=== PATIENT | female | born 1995 | race Caucasian/White ===

== ENCOUNTER 2025-04-04 02:25 | Inpatient (IN) | payer OTHER, SELFPAY ==
[2025-04-04] VITALS (32 sets, daily range): BP systolic 106–155; BP diastolic 56–87; PULSE 48–101; RESP 16; O2SAT 98–100
[2025-04-04] MEDS: OXYTOCIN 10 UNIT/ML INJ IM (01:40)
[2025-04-04 02:09] LABS: Basophils Percent Auto 0.1 % (0.0-3.0); Eosinophils Percent Auto 0.2 % (0.0-7.0); Hematocrit 39.4 % (33.0-51.0); Hemoglobin* 13.4 gm/dL (12.0-16.0); Immature Granulocytes Pct Auto 1.1 %; Lymphocytes Percent Auto 9.4 % (20-44); Mean Corpuscular HGB Conc 34 gm/dL (32-36); Mean Corpuscular Hemoglobin 32 pg (26-34); Mean Corpuscular Volume 94 fL (80-100); Monocytes Percent Auto 3.1 % (0.0-11.0); Neutrophils Percent Auto 86.1 % (42.0-72.0); Platelet Count* 240 K/uL (140-440); RDW Coefficient of Variation % 13.1 % (11.5-15.5); Red Blood Count 4.18 m/uL (4.00-5.20)
[2025-04-04 02:13] LABS: Slide Review Reflex No
--- NOTE | 2025-04-04 02:15 | ED_ITS ---
ED Chart Note Chart Note Details Date: 04/04/25 Details: I was called from the ER to emergently attend this patient. Sign out to me by nurses is that she is precipitous pre term delivery. She is reportedly 34 weeks. I do know her blood type is A positive, no RhoGAM. She has not had gr oup B strep screening done yet. She started having contractions at home, nursing staff noted that they can feel the head right down in the vagina. She has been leaking fluid, obviously ruptured. She tells me that she is not febrile, has not felt ill. Fluid leakage just happened with the contractions. She has had 1 other , did deliver pre term. Patient was initially standing in the room, leaning on the bed. We did assist patient between contractions to get into the bed. Nursing staff was having a difficult time finding heart tones through the abdomen. Scalp clip was put on. Within 5 minutes of my being there, patient delivered a live female infant at 1:23 p.m.. Given that this was a delivery, cord was clamped. Baby did cry right away, mouth the nose was suctioned of some amniotic fluid. She was taken to the warmer an nursing staff was attending to her. At 1 minute and 5 minutes Apgars were 9 and 9 upon my review of the . She did get pulse oximetry and heart rate probe placed on. She was appropriately dried. Within 10 minutes of delivery she was developing a little abdominal movement with breathing, nurses were attending to her appropriately. They did do some positive-pressure. Dr. Gonzalez did come, care turned over to her. Patient's placenta had not detached and was not delivered when I left. Patient was not at 30 minutes from delivery. Concern for retained placenta here given that she delivered pre term. Dr. Gonzalez is aware.
--- OUTSIDE RECORDS SUMMARY | 2025-04-04 02:27 | XMS_ITS | Clinical Summary ---
Author Organization [facility] Address [address] [place] [id number] Care Team Providers Care Chief Internal Auditor Name Role Phone MarinaGloria casas MD Primary Care Provider Allergies No known active allergies Medications Ztnsvcfq-Wc-Hrl- Fe-FA ( VITAMIN) tab tablet Take 1 tablet by mouth once daily. 0 7 Active Breast Pump PurchaseIndicati ons:Care and examination of lactating mother (HC) Electric breast pump for home use. Gestational age at delivery: 40 weeks. Reason for need: return to work. Length of need: 99 months (lifetime use) 1 Each 5 Active Active Problems Problem Noted Date Diagnosed Date Cervical cancer screening 11/10/2024 Overview (11/10/2024): 10/2024 NIL/HPV negative Plan: Pap and HPV due 10/2029 [facility], Supervision of high-risk 10/29/19 25 Overview (11/24/2024): Rosanna WILSON : 1995 REFERRING PROVIDER/CLINIC LOCATION/FAX #: Darvin Samuels Tapper, Kristin Noelle, MD Primary provider approves scheduling of recommended ultrasounds/testing: Yes [facility] ULTRASOUND/TESTING PATIENT Its A Girl! [facility] CONSULT ON 11/24/24 Support person name: Johnnie ULTRASOUND TYPE: REASON FOR VISIT: Consult for Hx PTD NEXT VISIT ALERTS: Final LINDA by LMP LMP Date: Patient's last menstrual period was 08/11/2024 (exact date). LINDA: 05/18/25 Early US: Date: 10/05/24 GA: 7w3d LINDA: 05/21/25 PrePregnancy Weight: 194lb Height: 5'6 BMI: 30 PLANS & FUTURE APPOINTMENTS: ULTRASOUND/GROWTH PLAN: - Growth: Next TESTING PLAN: - Testing: Through DELIVERY PLAN: - Scheduled delivery: - Preferred delivery location: [place] PRIMARY DIAGNOSIS: 29 y.o. Estimated Date of Delivery: 05/18/25 MATERNAL Anxiety, depression 2017 34w3d PTD BMI 30 PREVIOUS ULTRASOUNDS: ECHO: SPECIALISTS/CONSULTS: Include: Specialty MD Clinic Name Phone# [place] and ADDED TO PATIENT CARE TEAM GENETICS: NIPS: Low Risk CARE COORDINATION: PERTINENT LABS: Labs reviewed? Yes Normal? Yes Blood type: A Rh Positive Antibody screen: Negative PERTINENT MEDS: PROCEDURES: PLAN OF CARE: Anxiety and depression 05/20/2018 Migraine without aura and wi thout status migrainosus, not intractable 05/20/2018 labor in third trimester with de livery 10/05/2017 Supervision of normal first , antepartu m 03/25/2017 Rubella non-immune status, antepartum 03/25/2017 Hyperopic astigmatism of both eyes 01/16/2017 AUDELIA (generalized anxiety disorder) 12/16/2013 Assessment & Plan (01/16/2017 5:05 PM CDT): Mental Health concern: anxiety well controlled. No current medication. No therapy currently. PHQ Depression Screening 01/09/2016 01/16/2017 Date of PHQ exam (doc flow) 01/09/2016 01/16/2017 1. Lack of interest/pleasure 0 - Not at all 0 - Not at all 2. 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 No intermenstrual bleeding, spotting, or discharge. Dysmenorrhea : cramping severe first several day to entire menses. Last two cycles had cramping for 2 weeks following her menses. Resolved with changes in diet. Associated with changes in bowel. Cyclic symptoms include bloating, diarrhea and constipation. Current contraception: condoms History of abnormal Pap smear: No History of abnormal mammogram: n/a Family history of breast cancer: Yes Family history of uterine or ovarian cancer: No Regular self breast exam: yes Regular self skin checks: yes Changing moles/lesions? No Diet:regular Calcium Intake: Adequate dietary intake Exercise: moderate regular exercise program Dentist twice per year: yes Vision exam in last two years: yes STD concerns: No Age first intercourse: 14 New Partner in last 90 days? No Abuse: Current or Past(Physical, Sexual or Emotional)- No Do you feel safe in your environment - yes Safe in relationships? yes Screen for STD (sexually transmitted disease) 01/17/20 17 03/25/2017 Encounters Date Type Department Care Team Description 03/24/2025 4:05 PM CDT OB Encounter [facility] [address] [place] [address] Gloria Gray MD Care (32w 1d) 03/24/2025 Travel 03/11/2025 2:25 PM CDT OB Encounter [facility] [address] [facility] [place] [address] Gloria Gray MD Care (30w 2d/) 03/11/2025 Travel 02/24/2025 2:50 PM CDT OB Encounter [facility] [address] [place] [address] Gloria Gray MD Care (28w 1d/Had a fall on Mother's day due to cat tripping her but didn't land belly down just on knees and arms. wanted her to mention it.) 02/24/2025 Travel 01/29/2025 10:30 AM CDT Ancillary Procedure [facility] [address] [place] [address] 01/29/2025 9:15 AM CDT OB Encounter [facility] [address] [place] [address] Gloria Gray MD Care (24w 3d) 01/29/2025 Travel from Last 3 Months Immunizations Immunization Administration Dates Next Due DTaP 03/11/1998 Human Papilloma Virus Vaccine 08/19/2009, 009,02/01/2009 08/16/2009 Influenza, IIV4 08/07/2017 MMR 10/06/2017 Td (Age >=7 Years) 05/25/2005 Td, Preservative Free (age >= 7 Years) 5 Tdap 02/24/2025,09/11/2017,01/09/2016 Family History * Patient is adopted Medical History Relation Name Comments Amblyopia Daughter Chevra Alcoholism Father Heart attack Father Unknown Father adopted by her stepfather. has adopted step and half sibling Chromosomal disorder Half-Brother Wilfredo Morel-Darlene agenis syndrome Anxiety disorder Maternal Grandfather Coronary artery disease Maternal Grandfather Heart Disease Maternal Grandfather Throat cancer Maternal Grandfather Arthritis Maternal Grandmother Cancer-breast Maternal Grandmother Osteoarthritis Mother Cancer-breast Other maternal side Heart attack Paternal Grandfather Relation Name Status Comments Daughter Marlon Alive Father Half-Brother Wilfredo Alive Maternal Grandfather Alive Maternal Grandmother Alive Mother Alive Other Paternal Grandfather Social History Tobacco Use Types Packs/Day Years Used Date Smoking Tobacco: Never Smokeless Tobacco: Never Tobacco Cessation:Counseling Given: Yes Comments:Hx of exposure as a child Alcohol Use Standard Drinks/Week Comments Not Currently 0 (1 standard drink = 0.6 oz pur e alcohol) OCCASIONAL BEER PHQ-2 Answer Date Recorded PHQ-2 TOTAL SCORE 0 04/06/2021 Social Connections Answer Date Recorded Do you often feel lonely or isolated from those around you? 0 01/01/2025 Financial Resource Strain Answer Date R ecorded Difficulty of Paying Living Expenses 3 01/01/2025 Difficulty of Paying Living Expenses Not on file 01/01/2025 Food Insecurity Answer Date Recorded Do you worry your food will run out before you are able to buy more? 1 01/01/2025 Transportation Needs Answer Date Record ed Does lack of transportation keep you from medica l appointments? 1 01/01/2025 Does lack of transportation keep you from work, meetings or getting things that you need? 1 01/01/2025 Housing Stability Answer Date Recorded What is your housing situation today? 1 01/01/2025 Interpersonal Safety Answer Date Record ed Are you being hit, kicked, p ushed or yelled at (see row info)? No 11/24/2024 Interpersonal Safety Abuse 12 - 18 Not on file 11/24/2024 Interpersonal Safety Ambulatory Vulnerability No t on file 11/24/2024 Utilities Answer Date Recorded Do you have trouble paying f or utilities (for example, heat, electricity, water, phone)? 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 Not on file Not on file Obstetrics History Para Term AB IAB SAB Ectopic Multiple Livin g Live Births 2 1 0 1 0 0 0 0 0 1 1 Date Outcome GA Total Labor Labor/2nd/3rd Weight Sex Type Anes PTL James A1 A5 Name Clin 2016 34w 3d 2.02 kg (4 lb 7.3 oz) F Vag Epidur al Y Livin g 9 9 Ziegle r, Liudmilaa Divya Delivery Location:[facility] Current Summary Episode Dates Number of Fetuses Estimated Date of Delivery 09/22/2024 - Present (04/04/2025) 05/18/2025 (set by Silvana Castañeda RN on 09/22/2024 based on Last Menstrual Period on 08/11/2024 (Exact Date)) Dating Summary Based On LINDA GA Diff Last Menstrual Period on 08/11/2024 (Exact Date) 05/18/2025 Working Vitals Pregravid Weight Height TWG (As of 04/04/2025) Pregrav id BMI 1.69 m (5' 6.54) Date GA Fund Present FHR Mvmt BP Weight Edema Alb Glu Ket Dil/ Eff/Sta 5 15w0d Inpatient data not displayed here. See encounter summary. Notes Progress Notes - OB Encounte r - 03/24/2025 - GA:32w1d 03/24/2025 - 32w1d - Gloria Gray MD SUBJECTIVE: Rosanna WILSON is a 29 y.o. female at 32+1 weeks. No concerns. See visit comments. OBJECTIVE: see OB vitals flow sheet ASSESSMENT : 32+1 weeks gestation with no complications PLAN: labor signs and symptoms reviewed with patient including pain, cramping, bleeding or leaking fluid. RTC 2 weeks. Gloria Gray MD .................... 03/24/2025 4:23 PM Progress Notes - OB Encounte r - 03/11/2025 - GA:30w2d 03/11/2025 - 30w2d - Gloria Gray MD SUBJECTIVE: Rosanna WILSON is a 29 y.o. female at 30+2 weeks. No concerns. Weight is down. However she reports eating and drinking well. See visit comments. OBJECTIVE: see OB vitals flow sheet ASSESSMENT : 30+2 weeks gestation with no complications PLAN: labor signs and symptoms reviewed with patient including pain, cramping, bleeding or leaking fluid. RTC 2 weeks. Gloria Gray MD .................... 03/11/2025 2:40 PM Progress Notes - OB Encounte r - 02/24/2025 - GA:28w1d 02/24/2025 - 1d - Gloria Gray MD SUBJECTIVE: Rosanna WILSON is a 29 y.o. female at 28+1 weeks. No concerns. See visit comments. OBJECTIVE: see OB vitals flow sheet ASSESSMENT : 28+1 weeks gestation with no complications PLAN: labor signs and symptoms reviewed with patient including pain, cramping, bleeding or leaking fluid. Diabetes, hemoglobin and syphilis screening today. TDaP today. RTC 2 weeks. Gloria Gray MD .................... 02/24/2025 3:01 PM Progress Notes - OB Encounte r - 01/29/2025 - GA:24w3d 01/29/2025 - 24w3d - Gloria Gray MD SUBJECTIVE: Rosanna WILSON is a 29 y.o. female at 24+3 weeks. No concerns. See visit comments. OBJECTIVE: see OB vitals flow sheet ASSESSMENT : 24+3 weeks gestation with no complications Hx . Cervical length 4.5 cm at her 20 week ultrasound. PLAN: labor signs and symptoms reviewed with patient including pain, cramping, bleeding or leaking fluid. RTC 4 weeks, will do diabetes, hemoglobin and syphilis screening and TDaP next visit.. Gloria Gray MD .................... 01/29/2025 9:28 AM Progress Notes - OB Encounte r - 01/01/2025 - GA:20w3d 01/01/2025 - w3d - Gloria Gray MD SUBJECTIVE: Rosanna WILSON is a 29 y.o. female at 20+3 weeks. No concerns. See visit comments. OBJECTIVE: see OB vitals flow sheet ASSESSMENT : 20+3 weeks gestation with no complications History of , cervical length with ultrasound today. PLAN: labor signs and symptoms reviewed with patient including pain, cramping, bleeding or leaking fluid. RTC 4 weeks. Gloria Gray MD .................... 01/01/2025 11:53 AM Progress Notes - OB Encounte r - 11/26/2024 - GA:15w2d 11/26/2024 - 15w2d - Gloria Gray MD SUBJECTIVE: Rosanna WILSON is a 29 y.o. female at 15+2 weeks. No concerns. See visit comments. Patient is down 10# since our last visit, she reports cutting out soda and not having cravings for sugar. She is eating well and staying hydrated. Denies nausea/vomiting. OBJECTIVE: see OB vitals flow sheet ASSESSMENT : 15+2 weeks gestation with no complications Hx of late . PLAN: Warning signs and symptoms reviewed with patient including pain, cramping, bleeding or leaking fluid. RTC 4-5 weeks with 20 week ultrasound and cervical length ultrasound per [facility] recommendations with prior history of .. Gloria Gray MD .................... 11/26/2024 3:06 PM CY CHECKER Progress Notes - Hospital En counter - 11/24/2024 - GA:15w0d 11/24/2024 - 15w0d - Ashley Chase RN TELEHEALTH As the RN for this telehealth service, I attest that I introduced myself to the patient, provided my credentials, disclosed my location, and determined that, based on a review of the patients chart and/or a discussion with members of the patient's treatment team, a virtual visit is an appropriate and effective means of providing this service. The patient and I mutually agree that this visit is appropriate. This consult was done virtually with her in her home. No vital signs or heart rates were taken for this visit [facility] Consultation Visit Patient scheduled for consultation due to h/o of 2017 PTD @ 34w3d Is currently @ 15w0d. She was referred by Gloria Gray MD - OB Provider The FOB is Johnnie. He is the father of this and the previous . Assessment Histories reviewed today include: Past Medical History, Past Surgical History, Social History and Family History and Obstetric History. Refer to the corresponding sections of the history section of [facility] chart and the [facility] Navigator for details. Comments under Consult in problem list updated after review with patient. Assessment: Patient's perception of movement: Flutters. Normal movement discussed. Education Some basic routine education done during assessment. See patient education section for details. Patient states that all her questions were answered. Scheduled to consult with Dr. Meadows today. Detailed verbal report given. After Visit Summary created and discussed with patient on discharge. Yes After Visit summary offered and supplied to patient? Patient will view via [employer]. Is referring provider within [facility]? yes Consult note forwarded: N/A RN time: 20 min Ashley England RN 11/24/2024 7:29 AM CY CHECKER Progress Notes - OB Encounte r - 10/28/2024 - GA:11w1d 10/28/2024 - 11w1d - Gloria Gray MD Images from the original note were not included. FIRST OB VISIT HPI: Rosanna WILSON is a 29 y.o. female at 11w1d with vences intrauterine here today for a initial OB exam. Estimated due date is Estimated Date of Delivery: 05/18/25 based on LMP, confirmed with 1st trimester ultrasound . Prior complicated by spontaneous delivery at 34+3. No other complications with that . She did require manual placental removal. Nausea/Vomiting: no Breast tenderness: yes, but resolved Fatigue: no Bleeding: no Taking vitamins: yes Options of sequential screen, cell-free DNA testing, amniocentesis were discussed. Patient is interested in pursuing testing. AMA: no Previous : no OB History Para Term AB Living 2 1 0 1 0 1 SAB IAB Ectopic Multiple Live Births 0 0 0 0 1 # Outcome Date GA Lbr Ivan/2nd Weight Sex Type Anes PTL Lv 2 Current 1 10/05/17 34w3d 2.02 kg (4 lb 7.3 oz) F Vag EPIDURAL Y JAMES Past Medical History: . Date No Significant Past Medical History Post depression Pyelonephritis 2012 Varicella in childhood Past Surgical History: . Laterality Date WISDOM TEETH EXTRACTION Family History Adopted: Yes Problem Relation Age of Onset Osteoarthritis Mother Alcoholism Father Unknown Father adopted by her stepfather. has adopted step and half sibling Heart attack Father Chromosomal disorder Half-Brother Morel-Magenis syndrome Amblyopia Daughter Cancer-breast Maternal Grandmother Arthritis Maternal Grandmother Anxiety disorder Maternal Grandfather Heart Disease Maternal Grandfather Coronary artery disease Maternal Grandfather Throat cancer Maternal Grandfather Cancer-breast Other maternal side Social History Tobacco Use Smoking status: Never Smokeless tobacco: Never Tobacco comments: Hx of exposure as a child Substance Use Topics Alcohol use: Not Currently Comment: OCCASIONAL BEER Current Outpatient Medications Medication Sig Pryhgbgz-Tr-Ffr-Fe-FA ( VITAMIN) tab tablet Take 1 tablet by mouth once daily. No current facility-administered medications for this visit. Medications have been reviewed by me and are current to the best of my knowledge and ability. ALLERGIES Patient has no known allergies. MENTAL HEALTH HISTORY History of psychiatric diagnosis: Anxiety Current mental health provider: not applicable Currently taking any psychiatric medications? No INFECTION HISTORY Current Drug Use: none Relevant infection history from OB Questionnaire: none REVIEW OF SYSTEMS Comprehensive ROS complete and negative other than noted in HPI and on OB Questionnaire. PHYSICAL EXAM BP 132/83 (Cuff Site: Left Arm, Position: Sitting, Cuff Size: Adult Large) Pulse 82 Ht 1.69 m (5' 6.54) Wt 88 kg (194 lb) LMP 08/11/2024 (Exact Date) SpO2 100% BMI 30.81 kg/m General Appearance: Alert, appropriate appearance for age. No acute distress. HEENT Exam: Grossly normal. Neck/Thyroid Exam: Supple, no masses, nodes or enlargement. Lungs: Clear to auscultation bilaterally. Breast Exam: Not indicated. Cardiovascular Exam: Regular rate and rhythm. S1, S2, no murmur. Abd: Soft, non-tender, no masses or organomegaly. Skin: no rashes or lesions. Lymphatics: no nodes palpable. Psychiatric Exam: Alert and oriented x 3, appropriate affect. Pelvic Exam Vulva and vagina appear normal. Cervix closed, long. Uterus: 11 wk sz, nontender. Adnexa: not palpable. Pelvimetry: Adequate pelvis. ASSESSMENT/PLAN 29 y.o. at 11w1d with vences intrauterine . ICD-10-CM 1. Encounter for supervision of other normal in first trimester Z34.81 DNA SCREEN SEND OUT 2. History of delivery, currently in first trimester O09.891 AMB CONSULT TO MATERNAL- MEDICINE 3. Cervical cancer screening Z12.4 CONSULTING IT ARCHITECT THIN PREP PAP SCREEN IMAGED Satisfactory exam. Demonstrates appropriate and health-seeking behaviors toward her . Verbalizes good understanding of care schedule and the importance of coming to each visit as scheduled. Start/continue vitamins. Reviewed labs. She was encouraged to call the office with any questions or concerns. Body mass index is 30.81 kg/m . Diet and expected weight gain discussed with patient. No data to display Intervention: patient reports no current anxiety or depression symptoms. Gloria Gray MD CY CHECKER Progress Notes - Phone OB En counter - 09/22/2024 - GA:6w0d 09/22/2024 - 6w0d - Silvana Castañeda RN Virtual Visit: As the provider for this telephone service, I attest that I introduced myself to the patient, provided my credentials, disclosed my location, and determined that, based on a review of the patient's chart and/or a discussion with members of the patient's treatment team, a telephone visit is an appropriate and effective means of providing this service. The patient and I mutually agree that this visit is appropriate for telephone as well. Patient location (originating site [facility]): [place], [place] Provider location (distant site city/state): [place], [place] Video/Phone start time (include am/pm designation): 11:04 AM Video/Phone end time (include am/pm designation): 12:05 PM SUBJECTIVE: Rosanna WILSON is a 29 y.o. female, , who presents for OB education and intake Had positive test at home. This was Planned, Desired. Patient was not on contraception. Date Reliability: definite LINDA based on LMP: Estimated Date of Delivery: 05/18/25. 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 MENSTRUAL HISTORY: Patient's last menstrual period was 08/11/2024 (exact date).: Cycle Regularity: regular, every 28-30 days Past Medical History: . Date No Significant Past Medical History Post depression Pyelonephritis 2012 Varicella in childhood OB History Para Term AB Living 2 1 0 1 0 1 SAB IAB Ectopic Multiple Live Births 0 0 0 0 1 # Outcome Date GA Lbr Ivan/2nd Weight Sex Type Anes PTL Lv 2 Current 1 10/05/17 34w3d 2.02 kg (4 lb 7.3 oz) F Vag EPIDURAL Y JAMES 5P'S SUBSTANCE ABUSE SCREEN FOR ALCOHOL, DRUGS AND TOBACCO: Did any of your parents have a problem with using alcohol or drugs? No Do any of your friends (peers) have problems with drug or alcohol use? No Does your partner have a problem with drug or alcohol use? No Before you knew you were , how often did you drink beer, wine, wine coolers or liquor or use any kind of drug? Sometimes In the past month, how often did you drink beer, wine, wine coolers or liquor or use any kind of drug? Not at all How much did you smoke, vape or use tobacco or nicotine in any form before you knew you were ? Don't Smoke, Vape or use Tobacco Genetic Screening Genetic Screening/Teratology Counseling- Includes patient, baby's father, or anyone in either family with: Patient's age 35 years or older as of estimated date of delivery: No Thalassemia (Kiswahili, Kiswahili, Mediterranean, or background): MCV less than 80: No Neural tube defect (Meningomyelocele, Spina bifida, or Anencephaly): No Congenital heart defect: No Down syndrome: No Lb-Sachs (Ashkenazi Restoration, Cajun, Peruvian [place]): No Pam disease (Ashkenazi Restoration): No Familial dysautonomia (Ashkenazi Restoration): No Sickle cell disease or trait (): No Hemophilia or other blood disorders: No Muscular dystrophy: No Cystic fibrosis: No [place]'s chorea: No Intellectual disability and/or autism: No Other inherited genetic or chromosomal disorder: Yes (Comment: SMS- half brother) Maternal metabolic disorder (eg. Type 1 diabetes, PKU): No Patient or baby's father had child with defects not listed above: No Recurrent loss, or a stillbirth: No Medications (including supplements, vitamins, herbs, or OTC drugs)/illicit/recreational drugs/alcohol since last menstrual period: No CURRENT MEDICATIONS: Current Outpatient Medications Medication Sig acetaminophen (TYLENOL) 325 mg tablet Take 1-2 tablets by mouth every 4 hours if needed. Max acetaminophen dose: 4000mg in 24 hrs. Breast Pump - Purchase 1 Pump. For home use. Gestation age at delivery: 34 weeks. Reason for need: support. Length of need: 1-12 months ibuprofen (ADVIL; MOTRIN) 600 mg tablet Take 1 tablet by mouth every 6 hours if needed for Pain. Maximum of 3200 mg in 24 hours. PARoxetine (PAXIL) 20 mg tablet Take 1 tablet by mouth every morning. PARoxetine (PAXIL) 30 mg tablet Take 1 tablet by mouth every morning. Plldjswd-Cv-Wsd-Fe-FA ( VITAMIN) tab tablet Take 1 tablet by mouth once daily. Current Facility-Administered Medications Medication Dose Route Frequency Last Rate etonogestrel subdermal implant 1 Each (NEXPLANON) 1 Device Subdermal q 3 years Medications have been reviewed by me and are current to the best of my knowledge and ability. ALLERGIES: Patient has no known allergies. OBJECTIVE: LMP 08/11/2024 (Exact Date) No No results found for: PREGURINE ASSESSMENT/PLAN: No diagnosis found. EDUCATION/PATIENT INSTRUCTIONS - Advised patient to start/continue vitamin. - Discussed risk of using alcohol, tobacco, other drugs in . - Discussed healthy lifestyle in . - Provided online resources such as [employer] and [employer]. Discussed jezz-hch-fwwksoh medications, and follow up. - Encouraged patient to call clinic at [phone] with any vaginal bleeding, fluid leaking from vagina, severe abdominal pain, nausea with severe vomiting, fever higher than 100.4F, painful urination, headache not relieved by Tylenol, or other concerns - labs - Patient informed to schedule 1st trimester dating ultrasound between 7-10 weeks. - Initial OB appointment with FP/OB scheduled. PHQ-9, and COVID-19 vaccine discussion to be completed at this visit. Future Appointments Date Time Provider Department Center 10/28/2024 4:30 PM Gloria Gray MD [facility] Silvana Castañeda RN .................... 09/22/2024 11:31 AM CY CHECKER Last Filed Vital Signs Vital Sign Reading Time Taken Comments Blood Pressure 110/72 03/24/2025 4:13 PM CDT Pulse 86 03/24/2025 4:13 PM CDT Temperature 37.2 C (98.9 F) 10/08/2019 5:39 PM POLICY CHECKER Respiratory Rate 18 10/08/2019 5:39 PM POLICY CHECKER Oxygen Saturation 100% 03/24/2025 4:13 PM CDT Inhaled Oxygen Concentration - - Weight 82.3 kg (181 lb 6.4 oz) 03/24/2025 4:13 P M CDT Height 169 cm (5' 6.54) 10/28/2024 4:41 PM POLICY CHECKER Body Mass Index 28.81 10/28/2024 4:41 PM POLICY CHECKER Plan of Treatment Upcoming Encounters Date Type Department Care Team (Late st Contact Info) Description 04/07/2025 4:05 PM CDT OB Encounter [facility] [address] [place] [address] Gloria Gray MD [address] [place] [address] 04/21/2025 4:05 PM CDT OB Encounter [facility] [address] [place] [address] Gloria Gray MD [address] [place] [place] [address] 04/28/2025 4:30 PM CDT OB Encounter [facility] [address] [facility] [address] Gloria Gray MD [address] [place] [place] [address] 05/05/2025 4:30 PM CDT OB Encounter [facility] [address] [place] [address] Gloria Gray MD [address] [facility] [place] [address] 05/12/2025 3:40 PM CDT OB Encounter [facility] [address] [place] [address] Gloria Gray MD [address] [place] [address] Health Maintenance Due Date Last Done Comments Depression screening for age 12+ 2005 Hepatitis B series for 19+ (1 of 3 - 19+ 3-dose series) 2012 COVID-19 vaccine series ( - 2023- season) 2024 Influenza Vaccine (Season Ended) 2025 08/07/2017 BMI (ht and wt on same day) for age 18+ 10/28/2025 10/28/2024, 04/06/2021, 04/29/2018, Additional history exists Pap test for age 21-65 10/28/2029 , 10/28/2024, 04/06/2021, Additional history exists Tetanus booster 02/24/2035 02/24/2025, 08/15, 01/09/2016, Additional history exists HIV for age 15-65 Completed 10/21/2024, 03/20/2017 Hepatitis C screening for age 18-79 Completed 10/21/2024 Tdap Completed 02/24/2025, 08/15, 01/09/2016 Pneumococcal series for age 6-49 Aged Out No longer eligible based on patient's age to complete this topic RSV vaccine for adults or (No Doses Required) Completed Procedures Procedure Name Priority Date/Time Associated Diagnosis Comments GLUCOSE TOLERANCE, GESTATIONAL SCREEN 1H Routine 02/24/2025 3:02 PM CDT Encounter for supervision of other normal in second trimester (HC) HEMOGLOBIN Routine 02/24/2025 3:02 PM CDT Encounter for supervision of other normal in second trimester (HC) TREPONEMA PALLIDUM Routine 02/24/2025 3: 01 PM CDT Encounter for supervision of other normal in second trimester (HC) US OB FOLLOW UP ANY TRI SINGLE TA Routine 01/29/2025 11:30 AM CDT Encounter for supervision of other normal in second trimester (HC) CONSULTING IT ARCHITECT THIN PREP PAP SCREEN IMAGED Routine 10/28/2024 5:05 PM POLICY CHECKER Cervical cancer screening ANTI HIV 1/2 Routine 10/21/2024 3:09 PM POLICY CHECKER Encounter for supervision of other normal in first trimester (HC) ANTI HCV Routine 10/21/2024 3:09 PM POLICY CHECKER Encounter for supervision of other normal in first trimester (HC) from Last 3 Months or Most Recently Relevant to Health Maintenance Results * (ABNORMAL) HEMOGLOBIN (02/24/2025 3:02 PM CDT) HEMOGLOBIN 11.2(L) 11.7 - 15.5 g/dL [facility] Blood BLOOD SPECIMEN / Unknown 02/24/2025 3:02 PM CDT 02/24/2025 3:02 PM CDT Gloria Gray MD HEMATOLOGY Final R esult Performing Organization Address City/[facility]/ZIP Co de Phone Number Kamida [facility] [address] [place] [address], [place] [phone] [facility] [address] [place] [address] * GLUCOSE TOLERANCE, GESTATIONAL SCREEN 1H (02/24/2025 3:02 PM CDT) GLUCOSE, GESTATIONAL SCREEN (50G)-140 CUTOFF 104 <140 mg/dL [facility] Blood BLOOD SPECIMEN / Unknown 02/24/2025 3:02 PM CDT 02/24/2025 3:02 PM CDT Gloria Gray MD CHEMISTRY Final R esult Kamida [facility] [address] [place] [address], [place] [phone] [facility] [address] [place] [address] * TREPONEMA PALLIDUM (02/24/2025 3:01 PM CDT) TREPONEMA PALLIDUM Non-Reacti ve Non-Reacti ve 02/25/2025 1:[address] [facility] Blood BLOOD SPECIMEN / Unknown [facility] / Unknown 02/24/2025 3:01 PM CDT 02/24/2025 3:01 PM CDT us Gloria Gray MD SEND OUTS Final R esult [facility] [address] [place] [address], [place] * US OB FOLLOW UP ANY TRI SINGLE TA (01/29/2025 11:30 AM CDT) Anatomical Region Laterality Modality , 2or 3 TRIMESTER Ultrasound 02/01/2025 3:33 PM CDT Impressions 02/01/2025 3:33 PM CDT 1. Living fetus in breech lie with gestational age of 24 weeks 3 days by LMP and 24 weeks 6 days by today`s measurements. EDC based on LMP is 05/18/2025. 2. RVOT and LVOT visualized and preop normal limits. As visualized and demonstrate no obvious abnormality. Dictated by Desean Kim MD @ 02/01/2025 3:33:26 PM (Electronically Signed) Narrative 02/01/2025 3:33 PM CDT For Patients: As a result of the Century Cures Act, medical imaging exams and procedure reports are released immediately into your electronic medical record. You may view this report before your referring provider. If you have questions, please contact your health care provider. INDICATION: Follow up survey TECHNIQUE: Limited transabdominal two-dimensional paredes-scale ultrasound examination. COMPARISON: survey of 01/01/2025 FINDINGS: There is a living fetus in breech lie with gestational age of 24 weeks 3 days by LMP and 24 weeks 6 days by today`s measurements. EDC based on LMP is 05/18/2025. BPD: 6.1 cm, 24 weeks 6 days Head circumference: 22.8 cm, 24 weeks 6 days Abdominal circumference: 20.6 cm, 25 weeks 2 days Femur length: 4.3 cm, 24 weeks HC/AC: 1.11 The weight is estimated at 721 grams, the 52nd percentile. The heart rate is measured at 165 beats per minute and the rhythm appears regular. The amniotic fluid volume is within normal limits with single deepest pocket of 5.1 cm. The placenta is posterior and superior to the cervical os. There is no evidence of previa. The cervical length is normal at 4.5 cm. The RVOT and LVOT are visualized today and appear to be within normal limits. The right and left hands are also visualized and demonstrate no obvious abnormality. Procedure Note Desean Kim MD - 02/01/2025 For Patients: As a result of the Cures Act, medical imagingexams and procedure reports are released immediately into your electronicmedical record. You may view this report before your referring provider.If you have questions, please contact your health care provider. INDICATION: Follow up survey TECHNIQUE: Limited transabdominal two-dimensional paredes-scale ultrasoundexamination. COMPARISON: survey of 01/01/2025 FINDINGS: There is a living fetus in breech lie with gestational age of 24 weeks 3days by LMP and 24 weeks 6 days by today`s measurements. EDC based on LMPis 05/18/2025. BPD: 6.1 cm, 24 weeks 6 days Head circumference: 22.8 cm, 24 weeks 6 days Abdominal circumference: 20.6 cm, 25 weeks 2 days Femur length: 4.3 cm, 24 weeks HC/AC: 1.11 The weight is estimated at 721 grams, the 52nd percentile. The heart rate is measured at 165 beats per minute and the rhythmappears regular. The amniotic fluid volume is within normal limits with single deepestpocket of 5.1 cm. The placenta is posterior and superior to the cervical os. There is noevidence of previa. The cervical length is normal at 4.5 cm. The RVOT and LVOT are visualized today and appear to be within normallimits. The right and left hands are also visualized and demonstrate noobvious abnormality. IMPRESSION: 1. Living fetus in breech lie with gestational age of 24 weeks 3 days byLMP and 24 weeks 6 days by today`s measurements. EDC based on LMP is05/18/2025. 2. RVOT and LVOT visualized and preop normal limits. As visualized anddemonstrate no obvious abnormality. Dictated by Desean Kim MD @ 02/01/2025 3:33:26 PM (Electronically Signed) us Gloria Gray MD Final R esult * CONSULTING IT ARCHITECT THIN PREP PAP SCREEN IMAGED (10/28/2024 5:05 PM POLICY CHECKER) Case Report Gynecologic Cytology Report Case: [id number] Authorizing Provider: Gloria Gray MD Collected: 10/28/2024 1705 Ordering Location: [facility] Received: 10/29/2024 0806 Clinic First Screen: Deepali García Specimen: CONSULTING IT ARCHITECT ThinPrep Vial Screening, Cervical 11/09/2024 3:26 PM POLICY CHECKER [facility] INTERPRETATION/ RESULT NEGATIVE FOR INTRAEPITHELIAL LESION OR MALIGNANCY (NIL) (none) 11/09/2024 3:26 PM POLICY CHECKER [facility] at 1526 POLICY CHECKER SPECIMEN ADEQUACY Satisfactory for evaluation No endocervical component seen in a patient 11/09/2024 3:26 PM POLICY CHECKER [facility] HPV REQUEST HPV and PAP 11/09/2024 3:26 PM POLICY CHECKER [facility] Date of LMP 09/09/24 11/09/2024 3:26 PM POLICY CHECKER [facility] Last Pap Date 04/06/21 11/09/2024 3:26 PM POLICY CHECKER [facility] Last Pap Result NIL 3:26 PM POLICY CHECKER [facility] Abnormal Pap or [place] Bx in last 5 years No 11/09/2024 3:26 PM POLICY CHECKER [facility] Menstrual Status 11/09/2024 3:26 PM POLICY CHECKER [facility] [place] Bx Done Today No 11/09/2024 3:26 PM POLICY CHECKER [facility] Additional Information None given 11/09/2024 3:26 PM POLICY CHECKER [facility] Comment: Cytology is screened at [facility] - [address], [place] [address] and [facility] - [address] [place] [address] and [facility] - [address] [place] [address] Interpreted at [facility] - [address], [place] [address] Automated Review Successful 11/09/2024 3:26 PM POLICY CHECKER [facility] Comment:Specimen processed s uccessfully by automated mud car worker device, ThinPrep Imaging System, [employer] ANCILLARY TESTING CONSULTING IT ARCHITECT HPV Ordered, Please see separate report 11/09/2024 3:26 PM POLICY CHECKER [facility] Note The pap test is a screening technique, not a diagnostic procedure. It is used primarily to screen for squamous cancers and precursor lesions. Published studies have shown that it is subject to both false negative and false positive results. The pap test should not be used as the sole means to diagnose or exclude pre-malignant and malignant lesions. 11/09/2024 3:26 PM POLICY CHECKER [facility] Other (Cervical) Non-Blood / Unknown 10/28/2024 5:05 PM POLICY CHECKER 10/29/2024 8:06 AM POLICY CHECKER us Gloria Gray MD PATHOLOGY/CYTOLOGY Jackelyn keane Result [facility] [address] [place] [address], [place] * ANTI HCV (10/21/2024 3:09 PM POLICY CHECKER) HEPATITIS C ANTIBODY NON-REACTI VE NON-REACT DIXIE [facility] Comment: HCV antibody was non-reactive. There is no laboratory evidence of HCV infection. In most cases, no further action is required. However, if recent HCV exposure is suspected, a test for HCV RNA (test code 60862) is suggested. For additional information please refer to http://education.[employer]/faq/GSE58j5 (This link is being provided for informational/ educational purposes only.) Blood BLOOD SPECIMEN / Unknown 10/21/2024 3:09 PM POLICY CHECKER 10/21/2024 3:10 PM POLICY CHECKER Gloria Gray MD SEND OUTS Final R esult Performing Organization Address [facility]/ZIP Co de Phone Number Kamida [facility] [address] [facility] [place] [address], [facility] [address] [facility] [place] [address] * ANTI HIV 1/2 (10/21/2024 3:09 PM POLICY CHECKER) HIV AG/AB, 4TH GEN NON-REACT DIXIE NON-REACT DIXIE [facility] [place] Comment: HIV-1 antigen and HIV-1/HIV-2 antibodies were not detected. There is no laboratory evidence of HIV infection. PLEASE NOTE: This information has been disclosed to you from records whose confidentiality may be protected by state law. If your state requires such protection, then the state law prohibits you from making any further disclosure of the information without the specific written consent of the person to whom it pertains, or as otherwise permitted by law. A general authorization for the release of medical or other information is NOT sufficient for this purpose. For additional information please refer to http://education.[employer]Town/faq/RGZ424 (This link is being provided for informational/ educational purposes only.) The performance of this assay has not been clinically validated in patients less than 2 years old. Blood BLOOD SPECIMEN / Unknown 10/21/2024 3:09 PM POLICY CHECKER 10/21/2024 3:10 PM POLICY CHECKER Gloria Gray MD SEND OUTS Final R esult Kamida [facility] [address] [facility] [address], [place] [phone] [facility] [address] [facility] [place] [address] from Last 3 Months or Most Recently Relevant to Health Maintenance Insurance BLUE CROSS OF NON-HI-ITS Member Subscriber Plan / Payer (Ef fective 2024-Present) Name:Rosanna WILSON Member ID:[id number] Relation to Subscriber:Spouse Name:Johnnie Wilson Subscriber ID:[id number] Date of :1993 (Home) Address: [address] [place] [address] Payer ID:[id number] (NAIC) Type:Not on file Address: [address] [address] Advance Directives * Full Code (Latest Code Status on File) Date Activated Date Inactivated Comments 10/05/2017 9:02 PM 10/06/2017 3:10 PM * Full Code Date Activated Date Inactivated Comments 10/05/2017 2:56 PM 10/05/2017 9:02 PM * Full Code Date Activated Date Inactivated Comments 10/05/2017 2:10 PM 10/05/2017 2:56 PM Question Answer Comments Code Status Discussion: Discussed Care Teams Chief Internal Auditor Relationship Specialty Start Date End Date Gloria [place] [address] PCP - General Family Practice 12/18/24
[2025-04-04] MEDS: IBUPROFEN 600 MG TABLET PO (02:29)
--- NOTE | 2025-04-04 02:49 | PM.OBHPLI ---
OB - H&P: HPI Labor/Induction History of Present Illness Time Seen by Provider: 02:49 Date Seen: 04/04/25 Chief Complaint: The patient is a 29 year old 2 para 1 at 33 5/7 weeks gestation by LMP c/w 1st trimester US, who presented to Labor and Delivery in active labor. Chief complaint: Maternity : 2 Para: 1 Date of last menstrual period: 08/11/24 Estimated date of delivery: 05/18/25 Gestational age based on last menstrual period: 33 Narrative: Rosanna Burks is a 29 year old 2 para 1 at 33 5/7 weeks gestation by LMP c/w 1st trimester US, who presented to Labor and Delivery in active labor. Patient reports she woke up at 11:30pm, felt like had to use bathroom, says passed some gas and felt better but then noticed continual cramping so called center. center RN instructed patient to come in for evaluation. Patient reports water broke in car en route to hospital. Per nursing, patient presented and was brought to triage and immediately felt urge to push precipitously delivered onto bed. See delivery note for details. pt reports uncomplicated otherwise. she had early consult with [facility] due to history labor at 34w3d in 2017 and had cervical length US at 20wks = 4.5cm Patient had good care with Dr Gray at [facility] History of Present Dating criteria: based on LMP (c/w 1st tri US) care: good care Ultrasounds: normal 1st trimester US and normal mid trimester US Medical complications: none Labs Blood type: A (+) positive Rubella: immune RPR/VDLR: nonreactive GBS status: unknown HBsAG: negative Meds Home Medications and Allergies Home Medications ?Medication ?Instructions ?Recorded ?Confirmed ?Type pren vit comb.1-iron cb-FA-DSS 90 tab PO 04/04/25 History mg-1 mg-50 mg tablet Allergies Allergy/AdvReac Type Severity Reaction Status Date / Time No Known Drug Allergies Allergy Verified 04/04/25 02:25 OB - H&P: Exam Physical Exam: Vital signs: Pulse BP Pulse Ox 80 124/70 99 04/04/25 02:41 04/04/25 02:41 04/04/25 01:20 Constitutional: Constitutional: no acute distress and cooperative Routine Respiratory Exam: Respiratory: Present CTA bilaterally Routine Cardiovascular Exam: Cardiovascular: RRR Routine Exam: Comments: see delivery for details. On my arrival, patient in triage bed with placenta still in utero. no active bleeding OB - Results Labs Labs: Short CBC 04/04/25 Range/Units 02:06 WBC 16.10 H (4.50-11.00) K/uL Hgb 13.4 (12.0-16.0) gm/dL Hct 39.4 (33.0-51.0) % Plt Count 240 (140-440) K/uL OB - Problem Based A/P Additional Plan (1) labor: Problem details: presented at 33w5d complete and had precipitous delivery, see delivery note for details Status: Acute
--- NOTE | 2025-04-04 03:24 | W.PM.VAGD1_ITS ---
Procedure Delivery date: 04/04/25 Procedure Done: Global Procedure Details: The patient is a 29 year-old who presented to triage on 04/04/25 at 33 Weeks, 5 Days gestation for active labor. Patient reports she woke up at 11:30pm and felt liked needed have BM, she then noticed persistent cramping and called center and headed to hospital. reports she was leaking fluid in car and on arrival at 114 am she felt need to push and RN reports had SROM at 0120 with clear fluid. Patient was complete and had precipitous vaginal delivery at 0123. RN paged me at 0114 and I immediately headed towards hospital. Patient delivered on triage bed precipitously while I was en route. ? Labor Analgesia:? None ? Pitocin:? No ? Labor onset:? 1130pm on 04/03/25 ? Complete:? 0120 on 04/04/25 ? Pushing:? 0120 ? Per RN report, at 0123 a viable female infant delivered in vertex presentation via precipitous spontaneous vaginal delivery onto triage bed while I was en route to hospital. ER doctor was present in room.? Per report, cord was clamped and infant taken to warmer.? On my arrival at 0135, patient was supine on triage bed with placenta still in utero and cord in vagina. No meds had been given. I instructed RN to give IM pitocin and place IV. Patient with history prior delivery requiring manual placental removal. Rosanna was stable on my arrival and pediatric provider was en route so I then evaluated who was receiving CPAP for tachypnea in labor triage room. Infant verified to be stable on CPAP with RN at bedside and infant transfer being arranged. Rosanna present in same room as infant so I was able to continue to monitor her and en sure she remained stable during this time as well. Mortgage Lender then arrived took over care of infant. ?Infant weight 1.984kg.? 9 at 1 minute and 9 at 5 minutes. Rosanna remained stable. Placenta spontaneously and complete at 203 with a 3 vessel cord. ? Mother remained stable after delivery. ? Lacerations:? superficial abrasion along perineum, no lacerations. ? Blood loss: 100 mL. Blood loss measurement type: EBL ? Sponge and needles counts are correct. Intrapartal Events: Precipitous Labor <3 Hrs Route of delivery: Laceration description: None Estimated blood loss (mL): 100 Anesthesia type: None [place] Infant Gender: Female total score - 1 minute: 9 total score - 5 minute: 9
--- NOTE | 2025-04-04 04:07 | PM.OBPNL ---
Subjective Time Seen by Provider: 04:25 Date Seen: 04/04/25 Narrative: Patient herself is doing well . She is tolerating orals and is without complaints. No significant bleeding note by RN or patient. is being transferred to [facility] due to prematurity. I discussed with mom that it is typically medically recommended for patients to be monitored a minimum of 24 hours after vaginal delivery to monitor for any initial medical complications. patient would like to be near at [facility] and [facility] at [facility] to accept patient for unilateral transfer of care so patient can be closer to baby. There was concern that insurance may not cover a unilateral transfer and so patient and would prefer early discharge from here so mom can be up with prior to 24 hour discharge from here. We discussed technical medical recommendation is for 24 hour minimum monitoring; however, if mom is stable and doing well after 4 hours of monitoring, it is reasonable to discharge her early in these circumstances so she can be near baby in NICU. Her plans to drive her patient directly to [facility] to see baby and [facility] is right there incase she had any complications and discussed if so, she would need present to ER immediately. Patient and were in agreement and wanted to pursue this early discharge after 4 hours. patient has been up and ambulating without difficulty. She has voided. No significant bleeding. Fundus remains firm. Tolerating orals. If she continues to do well will plan d/c after 4 hours with plan as above. Objective Vital Signs: Last Vital Signs Pulse 85 04/04/25 03:55 BP 133/83 04/04/25 03:55 Pulse Ox 99 04/04/25 01:20 Plan Plan: see above
--- NOTE | 2025-04-04 05:56 | PM.OBPNVD1 ---
OB - PN:Subj Subjective Time Seen by Provider: 05:20 Date Seen: 04/04/25 Interval history: Routine monitoring with BP elevated last three checks at 149/75, 147/80, 141/81. First elevated bp was taken right after baby left with transfer team. pt currently reports no significant pain. says has noticed will get 'hot flash' body and then notices more cramping and points to uterus. Says cuff went off last 2 times right after this. No headaches, no RUQ pain, no vision changes. OB - PN: Obj Exam Physical Exam: Vital signs: Pulse BP Pulse Ox 65 123/58 L 100 04/04/25 05:50 04/04/25 05:50 04/04/25 05:37 Constitutional: Constitutional: no acute distress Routine HEENT Exam: Head: Present normal inspection Routine Abdominal Exam: Fundus: Present firm Comments: Abdominal Nttp including RUQ nttp. OB - PN: Obj Data Labs Labs: Laboratory Results - last 24 hr 04/04/25 04/04/25 02:06 02:08 WBC 16.10 H RBC 4.18 Hgb 13.4 Hct 39.4 MCV 94 MCH 32 MCHC 34 RDW Coeff of Dayday 13.1 Plt Count 240 Neut % (Auto) 86.1 H Lymph % (Auto) 9.4 L [place] % (Auto) 3.1 Eos % (Auto) 0.2 Baso % (Auto) 0.1 Neut # (Auto) 13.90 H Lymph # (Auto) 1.50 [place] # (Auto) 0.50 Eos # (Auto) 0.00 Baso # (Auto) 0.00 Abs Immat Gran (auto) 0.20 Imm/Tot Granulo (auto) 1.1 Blood Type A Positive Antibody Screen NEGATIVE OB - PN: A/P Delivery Assessment and Plan (1) labor: Problem details: presented at 33w5d complete and had precipitous delivery, see delivery note for details Status: Acute (2) delivery: Problem details: at presented at 33w5d complete and had precipitous delivery. Infant transferred NICU for prematurity Status: Acute (3) Elevated blood pressure reading: Status: Acute Plan pt was hoping for early d/c (see prior progress note) due to being transferred to [facility]. Pts last 3 SBP's in 140's range. discussed with patient with her elevated bp I cannot discharge her at 4 hours . Reviewed can be sign of htn/preeclampsia and discussed potential complications if develops. Will get preeclamptic labs. Discussed need to keep her longer for monitoring or option trying transfer to [facility] so can be closer to baby in NICU and still monitored but I do not know if insurance will or will not cover ambulance transfer. pt reported understanding and is okay with staying and further monitoring. We did discuss I am unable to give her time frame for possible discharge at this time, depends on labs, bp's, symptoms and clinic course. she would like to discharge as soon as able but reports understanding not medically recommended at this time and is okay with further monitoring if needed at this time.
[2025-04-04 07:13] LABS: Platelet Count* 256 K/uL (140-440)
[2025-04-04 07:14] LABS: Alanine Aminotransferase* 14 U/L (4-35); Aspartate Amino Transferase* 21 U/L (12-35); Blood Urea Nitrogen* 4 mg/dL (5-24); Creatinine* 0.5 mg/dL (0.5-1.5); Estimated Glomerular Filt Rate 129 ml/min
--- NOTE | 2025-04-04 07:49 | PM.OBPNVD1 ---
OB - PN:Subj Subjective Time Seen by Provider: 07:49 Date Seen: 04/04/25 Interval history: Pt resting. No concerns. No headaches, no RUQ pain, no vision changes. No significant bleeding. Is ambulating, tolerating orals, voiding without difficulty OB - PN: Obj Exam Physical Exam: Vital signs: Pulse BP Pulse Ox 63 121/66 100 04/04/25 07:35 04/04/25 07:35 04/04/25 05:37 Constitutional: Constitutional: no acute distress and cooperative Routine HEENT Exam: Head: Present normal inspection Routine Abdominal Exam: Fundus: Present firm (below umbilicus) OB - PN: Obj Data Labs Labs: Laboratory Results - last 24 hr 04/04/25 04/04/25 04/04/25 02:06 02:08 06:42 WBC 16.10 H RBC 4.18 Hgb 13.4 Hct 39.4 MCV 94 MCH 32 MCHC 34 RDW Coeff of Dayday 13.1 Plt Count 240 256 Neut % (Auto) 86.1 H Lymph % (Auto) 9.4 L [place] % (Auto) 3.1 Eos % (Auto) 0.2 Baso % (Auto) 0.1 Neut # (Auto) 13.90 H Lymph # (Auto) 1.50 [place] # (Auto) 0.50 Eos # (Auto) 0.00 Baso # (Auto) 0.00 Abs Immat Gran (auto) 0.20 Imm/Tot Granulo (auto) 1.1 BUN 4 L Creatinine 0.5 Estimated GFR 129 AST 21 ALT 14 Blood Type A Positive Antibody Screen NEGATIVE OB - PN: A/P Delivery Assessment and Plan (1) labor: Problem details: presented at 33w5d complete and had precipitous delivery, see delivery note for details Status: Acute (2) delivery: Problem details: at presented at 33w5d complete and had precipitous delivery. Infant transferred NICU for prematurity Status: Acute (3) Elevated blood pressure reading: Problem details: Elevated BP x 4 around 3-4hours after delivery. Preeclampsia labs negative. Status: Acute Assessment and Plan: -Preeclamptic labs wnl -BP's since have looked good 109-124/56-67 for last 2 hours. -Again discussed bp's and why important to monitor for elevated BP's. With infant transferred to NICU, pt eager to d/c early to go to NICU but reports understanding and willing to stay to ensure BP okay. We again reviewed that typically we would keep for 24 hours minimum but with circumstances of in NICU at [facility], if mom continues to do well AND BP's continue to look good, would d/c if BP's look good after 4 hours monitoring since last BP> 140/90 which was 0550. pt will be at NICU with daughter which is next to [facility] if any symptoms or concerns, discussed going to ER. We did review preeclamptic and warning s/s. In addition, will d/c home with BP cuff to check once daily after sitting for 15min, notify if >/=140/90. Pt in agreement with plan. Addendum: Pt got up to restroom after discussing above with me. When returned from restroom, getting back in bed, cuff immediately went off and BP 133/87. Will continue monitoring to verify not increasing. If remaining next 2 hours look okay, will d/c home with BP cuff for home monitoring and close follow up due to above extenuating circumstances. discussed patient will need someone else to drive her to NICU and she reports her or friend are planning to drive her.
--- NOTE | 2025-04-04 09:14 | PM.OBDSVD1 ---
DS: Providers Provider Time Seen by Provider: 07:59 Date Seen: 04/04/25 Date of admission: 04/04/25 02:25 Primary care physician: Not a Local Provider Admitting Clinician: Aida Gonzalez DO Attending Physician on discharge: Aida Gonzalez DO Date of Discharge: 04/04/25 DS: Diagnosis Discharge Diagnosis (1) delivery: Status: Acute Problem details: at presented at 33w5d complete and had precipitous delivery. Infant transferred NICU for prematurity (2) Elevated blood pressure reading: Status: Acute Problem details: Elevated BP x 4 around 3-4hours after delivery. Preeclampsia labs negative. Monitoring BP for 4 more hours and BP reassuring overall. Early d/c due to [facility] Exam Const: Vital Signs, click to edit/add: Vital Signs - 24 hr 04/04/25 01:20 04/04/25 01:42 04/04/25 02:26 Pulse Rate 83 78 Blood Pressure 137/85 131/73 Pulse Oximetry 99 04/04/25 02:41 04/04/25 02:55 04/04/25 03:10 Pulse Rate 80 72 81 Blood Pressure 124/70 124/73 128/71 Pulse Oximetry 04/04/25 03:25 04/04/25 03:41 04/04/25 03:55 Pulse Rate 90 77 85 Blood Pressure 132/75 128/79 133/83 Pulse Oximetry 04/04/25 04:10 04/04/25 04:49 04/04/25 05:05 Pulse Rate 86 60 71 Blood Pressure 130/78 149/75 H 147/80 H Pulse Oximetry 04/04/25 05:20 04/04/25 05:35 04/04/25 05:37 Pulse Rate 88 48 L Blood Pressure 141/81 H 155/86 H Pulse Oximetry 100 04/04/25 05:50 04/04/25 06:05 04/04/25 06:20 Pulse Rate 65 68 64 Blood Pressure 123/58 L 124/67 116/59 L Pulse Oximetry 04/04/25 06:35 04/04/25 06:50 04/04/25 07:05 Pulse Rate 64 67 67 Blood Pressure 115/62 109/60 109/56 L Pulse Oximetry 04/04/25 07:20 04/04/25 07:35 04/04/25 07:55 Pulse Rate 63 63 80 Blood Pressure 115/60 121/66 133/87 Pulse Oximetry 04/04/25 08:10 04/04/25 08:25 04/04/25 08:40 Pulse Rate 71 61 59 L Blood Pressure 110/59 L 106/58 L 115/62 Pulse Oximetry 04/04/25 08:55 04/04/25 09:10 Pulse Rate 60 61 Blood Pressure 122/65 117/67 Pulse Oximetry Documenting provider has reviewed patient's vital signs: yes Common normals: no apparent distress, healthy appearing, alert and well nourished General appearance: cooperative and comfortable : Uterus: U/1 and firm Neuro: Sensorium/orientation: alert OB - DS: Summary Hospital Course Hospital Course: The patient is a 29 year old G 2 P 2 at 33 5/7 weeks gestation that was admitted to the Center on 04/04/25 for active labor. She had precipitous vaginal delivery. She delivered a viable female . transferred to NICU for prematurity. She plans to breastfeed/pump. She had 4 elevated BP's 3-4 hours after delivery around time leaving with transport. Preeclamptic labs were normal. BP's were monitored for 4 more hours and okay. the patient has done well and requested early d/c to be with in NICU, see notes for details. Peripartum Data delivery method: Vaginal Laceration description: None Infant Gender: Female Status at Discharge Functional status at discharge: independent ambulation Time Spent with Patient Time attestation: Total time spent providing and/or coordinating discharge services: Discharge Plan Discharge Disposition: Home, Self-Care Date of Admission: 04/04/25 02:25 Attending Provider on Discharge: Aida Gonzalez Primary Care Provider: Provider,Not a Local Condition: Stable Anticipated Discharge Date/Time: 04/04/25 09:50 Discharge Medications: Continued pren vit comb.1-iron cb-[id number] 90-1-50 mg tablet PO Discharge Orders: Discharge Order (Routine); Ordered 04/04/25 Ordered By: Aida Gonzalez Patient Education: OB Vaginal/Breast Feeding Additional Instructions: Check BP once a day after sitting for 15 min. Write down and keep log. Notify if >/=140/90. Activity Level: Activity as Tolerated Activity Detail: pelvic rest x 6 weeks Discharge Diet: Regular Follow Up Appointments: Provider,Not a Local [Primary Care Provider, Family Practice] Gloria Gray MD [Staff Physician, Family Practice] Referral Note: Follow up with Dr Gray this week to ensure BP looks good and doing well . You can keep your visit for this on 04/07/25 Forms: [employer] Info Instructions Discharge Comments: Okay for discharge 0950 if BP's remain good until 950.
[2025-04-04] MEDS: DOCUSATE SODIUM 100 MG CAPSULE PO (10:36)
[2025-04-04] MEDS: ACETAMINOPHEN 500 MG TABLET 1000 MG PO (10:36)
[2025-04-06 18:51] LABS: Rapid Plasma Reagin (RPR) Non Reactive (Non Reactive)
== END 2025-04-04 11:18 | disposition home or self-care (01) | DRG 807 ==
LOC: OB OUT 02:26 → OB 08:11
PROVIDERS: Admitting Provider Family Medicine; PCP Family Medicine; Visit Provider Family Medicine
DX: O60.14X0 Preterm labor third trimester with preterm delivery third trimester, not applicable or unspecified (principal); Z37.0 Single live birth; Z3A.34 34 weeks gestation of pregnancy; O62.3 Precipitate labor; R03.0 Elevated blood-pressure reading, without diagnosis of hypertension
CPT/HCPCS: 36415; 82565; 82570; 84156; 84450; 84460; 84520; 85025; 85049; 86592; 86850; 86900; 86901; 88307; G0463; A9270; J2590